=== PATIENT | female | born 1990 | race Caucasian/White ===

== ENCOUNTER 2016-07-19 01:15 | Emergency (ER) | payer SELFPAY ==
[~2016-07-19] VITALS: Ht 165.1 cm; Wt 57.0 kg
[2016-07-19 01:46] VITALS: Ht 165.1 cm; Wt 57.0 kg
--- NOTE | 2016-07-19 04:34 | ERD ---
ER Documentation Chief Complaint Date/Time DATE: 07/19/16 TIME: 04:30 Chief Complaint burning pain upon urination, denies abd pain/pelvic pain HPI 26-year-old female presents to ED with chief complaint of dysuria and hematuria times one day. Associated symptoms include mild suprapubic pain. Patient states that she's noticed small clumps of blood when urinating since yesterday. She denies fever, vaginal discharge, flank pain, nausea, vomiting, and adnexal pain. LNMP was 06/19/16. She denies recent urinary tract infection or recent use of antibiotics. She has not taken any medications for relief of her symptoms. ROS All systems reviewed and are negative except as per history of present illness. Medications Home Meds Active Scripts Phenazopyridine Hcl* (Pyridium*) 100 Mg Tab, 100 MG PO TID Y for URINARY PAIN, # 8 TAB Prov:Renate Baires PA-C 07/19/16 Nitrofurantoin Monohyd Macrocr* (Macrobid*) 100 Mg Capsr, 100 MG PO BID for 14 Days, CAP Prov:Renate Baires PA-C 07/19/16 Allergies Allergies: Coded Allergies: naproxen (Verified Allergy, Unknown, hives, 07/19/16) PMhx/Soc Medical and Surgical Hx: pt denies Medical Hx, pt denies Surgical Hx History of Surgery: No Anesthesia Reaction: No Hx Neurological Disorder: No Hx Respiratory Disorders: No Hx Cardiac Disorders: No Hx Psychiatric Problems: No Hx Miscellaneous Medical Probl: No Hx Alcohol Use: Yes (OCC) Hx Substance Use: No Hx Tobacco Use: No Smoking Status: Never smoker Physical Exam Vitals Vital Signs Date Time Temp Pulse Resp B/P Pulse Ox O2 Delivery O2 Flow Rate FiO2 07/19/16 01:46 98.5 106 18 112/57 99 Physical Exam GENERAL: Non-toxic. No apparent signs of distress. LUNGS: Clear to auscultation. No accessory muscle use. No wheezing, no crackles. No signs or symptoms of respiratory distress. HEART: Regular rate and rhythm. No murmurs, clicks, rubs or gallops. ABDOMEN: Soft, mild tenderness to palpation of suprapubic area nondistended. Bowel sounds positive. No rebound or guarding. No gross peritoneal signs. No Kidd or McBurney point tenderness. No gross masses. BACK: No midline tenderness, no costovertebral tenderness. EXTREMITIES: No peripheral cyanosis or edema. No focal pain or notable trauma. Full range of motion. Good capillary refill. NEURO: The patient moves all 4 extremities with 5/5 strength. Cranial nerves are grossly intact. Normal mental status for age. Good muscle tone. SKIN: There is no apparent rash, petechiae, erythema or swelling. Good skin turgor. Result Diagram: 07/19/16 0438 Results 24 hrs Laboratory Tests Test 07/19/16 03:46 07/19/16 04:38 Urine Bacteria MANY Urine Bilirubin NEGATIVE Urine Clarity CLEAR Urine Color LT. YELLOW Urine Glucose NEGATIVE% Urine Hemoglobin 3+ Urine Ketones TRACE Urine Leukocyte Esterase 1+ Urine Microscopic RBC >200/HPF Urine Microscopic WBC >50/HPF Urine Mucus MODERATE Urine Nitrite POSITIVE Urine Specific Upton >=1.030 Urine Squamous Epithelial Cells MODERATE Urine Total Protein 2+ Urine Urobilinogen 0.2 E.U./dL Urine pH 6.0 Basophils # 0.010^3/ul Basophils % 0.3% Beta HCG, Quantitative 425.8mIU/ml Blood Morphology Comment Eosinophils # 0.110^3/ul Eosinophils % 0.7% Hematocrit 40.6% Hemoglobin 13.5g/dl Lymphocytes # 2.010^3/ul Lymphocytes % 13.9% Mean Corpuscular Hemoglobin 28.4pg Mean Corpuscular Hemoglobin Concent 33.2g/dl Mean Corpuscular Volume 85.4fl Mean Platelet Volume 7.7fl Monocytes # 0.710^3/ul Monocytes % 5.0% Neutrophils # 11.610^3/ul Neutrophils % 80.1% Nucleated Red Blood Cells # 0.010^3/ul Nucleated Red Blood Cells % 0.0/100WBC Platelet Count 86734^3/UL Red Blood Count 4.7510^6/ul Red Cell Distribution Width 13.8% White Blood Count 14.510^3/ul Procedures/MDM Patient initially presented with suprapubic pain and dysuria, that she did not describe as burning but rather a sensation of pressure while urinating. She also states she's had hematuria times one day and noticed clumps of blood while using the restroom. Patient stated that her last normal menstrual cycle was on 06/19/2016. The urine test was ordered along with UA. UA: 1+ leukocyte esterase, positive nitrite= findings consistent with acute cystitis POC urine : Positive Patient did not realize that she was , is now changes the workup from UTI to possible miscarriage. I ordered a first trimester ultrasound along with basic lab work. On physical exam patient had no adnexal tenderness, no flank pain, she is afebrile, and in no acute distress. CBC: 14.5 WBC, likely so she took UTI or stress reaction. Beta hC.8, consistent with early . Blood type: US: No intrauterine , ectopic cannot be excluded. I explained to the patient that she is likely to have miscarried, however due to her LNMP being in early June, this was likely a very early . I instructed the patient to return in 48 hours for serial beta hCG and possible repeat ultrasound. Will be treating patient with Macrobid for UTI. At this time I low suspicion for ovarian torsion, pyelonephritis, STI, PID, sepsis, and ruptured ectopic. Patient is stable for discharge and outpatient management. Advised to follow-up in 2 days for repeat beta hCG. Departure Diagnosis: Primary Impression: Complete Additional Impression: UTI (urinary tract infection) Urinary tract infection type: acute cystitis Hematuria presence: with hematuria Qualified Code: N30.01 - Acute cystitis with hematuria Condition: Stable Referrals: [facility] Renate Baires PA-C Jul 19, 2016 04:34
[2016-07-19 04:45] LABS: ADD UMIC YES; URINE BILIRUBIN (Dip) NEGATIVE (NEGATIVE); URINE BLOOD (Dip) 3+ (NEGATIVE); URINE COLOR LT. YELLOW (YELLOW); URINE GLUCOSE (Dip) NEGATIVE (NEGATIVE); URINE KETONES (Dip) TRACE (NEGATIVE); URINE LEUKOCYTE ESTERASE (Dip) 1+ (NEGATIVE); URINE NITRITE (Dip) POSITIVE (NEGATIVE); URINE TOTAL PROTEIN (Dip) 2+ (NEGATIVE); URINE UROBILINOGEN (Dip) 0.2 E.U./dL (0.1-1.0)
[2016-07-19 04:54] LABS: BASOPHILS % 0.3 % (0.0-2.0); EOSINOPHILS # 0.1 10^3/ul (0.0-0.5); EOSINOPHILS % 0.7 % (0.0-7.0); HEMATOCRIT 40.6 % (37.0-47.0); HEMOGLOBIN 13.5 g/dl (12.0-16.0); LYMPHOCYTES % 13.9 % (15.0-51.0); MEAN CORPUSCULAR HEMOGLOBIN 28.4 pg (29.0-33.0); MEAN CORPUSCULAR HGB CONC 33.2 g/dl (32.0-37.0); MEAN CORPUSCULAR VOLUME 85.4 fl (82.0-101.0); MEAN PLATELET VOLUME 7.7 fl (7.4-10.4); MONOCYTE # 0.7 10^3/ul (0.3-0.9); NEUTROPHIL # 11.6 10^3/ul (1.6-7.5); NEUTROPHILS % 80.1 % (39.0-77.0); PLATELET COUNT 378 10^3/UL (140-440); RED BLOOD COUNT 4.75 10^6/ul (4.20-5.40); RED CELL DISTRIBUTION WIDTH 13.8 % (11.5-14.5); UNCORRECTED WBC 14.5 10^3/ul (4.8-10.8); WHITE BLOOD COUNT 14.5 10^3/ul (4.8-10.8)
[2016-07-19 05:00] LABS: CONDITION 1
[2016-07-19 05:05] LABS: URINE RBCS >200 /HPF (0)
[2016-07-19 05:06] LABS: BACTERIA,URINE MANY; MUCUS,URINE MODERATE; SQUAMOUS EPITHELIAL CELL,UR MODERATE
--- NOTE | 2016-07-19 05:48 | RADRPT ---
PROCEDURE: US OB. CLINICAL INDICATION: Vaginal bleeding in . TECHNIQUE: Transabdominal and endovaginal imaging of the uterus is available for review COMPARISON: None available FINDINGS: No intrauterine is identified. The endometrial stripe is heterogeneous and measures 22 mm in thickness. The uterus is otherwise unremarkable. The right ovary measures 2.9 x 2.2 x 1.3 cm a nd the left ovary is enlarged and heterogeneous, measuring 3.4 x 2.2 x 3.6 cm. No adnexal mass is i dentified. Small free fluid is noted within the pelvis. IMPRESSION: 1. No intrauterine identified. There are no adnexal masses. Correlation with serial bet a HCGs and repeat pelvic ultrasound as clinically indicated, is recommended, as ectopic is not excluded on this examination. 2. Enlarged, heterogeneous appearance of the left ovary. RPTAT: HH .Shweta Malik MD, Date Time Electronically viewed and signed by .Shweta Malik MD, on 07/19/2016 05:48 .G/
[2016-07-19] MEDS ORDERED: PHEN-537 PO (06:23)
[2016-07-19] MEDS ORDERED: NITR-58 PO (06:23)
== END 2016-07-19 07:18 | disposition home or self-care (01) ==
LOC: FTE 01:15
DX: O03.9 Complete or unspecified spontaneous abortion without complication (principal); O23.10 Infections of bladder in pregnancy, unspecified trimester; R10.2 Pelvic and perineal pain
CPT/HCPCS: 76801; 76817; 81001; 81003; 84702; 85025; 86900; 86901; J2790; 36415

== ENCOUNTER 2016-07-21 12:15 | Emergency (ER) | payer SELFPAY ==
[~2016-07-21] VITALS: Ht 160 cm; Wt 60.0 kg
[~2016-07-21 12:15] MED LIST: NITR-58 PO; PHEN-537 PO
[2016-07-21 12:44] VITALS: Ht 160 cm; Wt 60.0 kg
[2016-07-21] MEDS ORDERED: ACETAMINOPHEN 325 MG TAB PO STA (16:18)
--- NOTE | 2016-07-21 16:49 | ERD ---
ER Documentation Chief Complaint Date/Time DATE: 07/21/16 TIME: 16:41 Chief Complaint recheck for beta hcg vaginal bleeding HPI This is a 26-year-old female presenting to emergency department for evaluation of . Patient was here 2 days ago for dysuria and hematuria. At that time she was told that she is and therefore a workup was done. An obstetric ultrasound was done 2 days ago reviewed by radiologist as no intrauterine . Patient continues to have light pink spotting. No clots or tissue passed. Patient continues to have suprapubic tenderness and dysuria. Patient was started on Macrobid 2 days ago and is taking this as prescribed. A0. No history of miscarriage or . No history of ectopic . ROS All systems reviewed and are negative except as per history of present illness. Medications Home Meds Active Scripts Phenazopyridine Hcl* (Pyridium*) 100 Mg Tab, 100 MG PO TID Y for URINARY PAIN, # 8 TAB Prov:Renate Baires PA-C 07/19/16 Nitrofurantoin Monohyd Macrocr* (Macrobid*) 100 Mg Capsr, 100 MG PO BID for 14 Days, CAP Prov:Renate Baires PA-C 07/19/16 Allergies Allergies: Coded Allergies: naproxen (Verified Allergy, Unknown, hives, 07/19/16) PMhx/Soc Medical and Surgical Hx: pt denies Medical Hx, pt denies Surgical Hx History of Surgery: No Anesthesia Reaction: No Hx Neurological Disorder: No Hx Respiratory Disorders: No Hx Cardiac Disorders: No Hx Psychiatric Problems: No Hx Miscellaneous Medical Probl: No Hx Alcohol Use: No Hx Substance Use: No Hx Tobacco Use: No Physical Exam Vitals Vital Signs Date Time Temp Pulse Resp B/P Pulse Ox O2 Delivery O2 Flow Rate FiO2 07/21/16 20:03 98.4 89 18 116/72 97 Room Air 07/21/16 12:44 97.7 77 18 108/68 100 Physical Exam Const: NAD, alert Head: Atraumatic Eyes: Normal Conjunctiva ENT: Normal External Ears, Nose and Mouth. Neck: Full range of motion..~ No meningismus. Resp: Clear to auscultation bilaterally Cardio: Regular rate and rhythm, no murmurs Abd: Soft, non tender, non distended. Normal bowel sounds Skin: No petechiae or rashes Back: No midline or flank tenderness Ext: No cyanosis, or edema Neur: Awake and alert Psych: Normal Mood and Affect Result Diagram: 07/21/16 1800 Results 24 hrs Laboratory Tests Test 07/21/16 18:00 07/21/16 19:25 Basophils # 0.110^3/ul Basophils % 0.6% Beta HCG, Quantitative 1359.1mIU/ml Blood Morphology Comment Eosinophils # 0.210^3/ul Eosinophils % 1.8% Hematocrit 38.8% Hemoglobin 12.9g/dl Lymphocytes # 2.710^3/ul Lymphocytes % 25.6% Mean Corpuscular Hemoglobin 28.5pg Mean Corpuscular Hemoglobin Concent 33.3g/dl Mean Corpuscular Volume 85.4fl Mean Platelet Volume 7.7fl Monocytes # 0.810^3/ul Monocytes % 7.3% Neutrophils # 6.810^3/ul Neutrophils % 64.7% Nucleated Red Blood Cells # 0.010^3/ul Nucleated Red Blood Cells % 0.0/100WBC Platelet Count 07820^3/UL Red Blood Count 4.5410^6/ul Red Cell Distribution Width 14.0% White Blood Count 10.510^3/ul Bedside Urine Blood 3+ Bedside Urine Glucose (UA) Negative Bedside Urine Ketones (LAB) Trace Bedside Urine Leukocyte Esterase (L Trace Bedside Urine Nitrite (LAB) Positive Bedside Urine Protein (LAB) 2+ Bedside Urine pH (LAB) 6.0 Current Medications Medications (Trade) Dose Ordered Sig/Sridevi Route PRN Reason Start Time Stop Time Status Last Admin Dose Admin Acetaminophen (Tylenol Tab) 650 mg ONCE STAT PO 07/21/16 16:18 07/21/16 16:20 DC 07/21/16 16:26 Procedures/MDM ED COURSE: The patient was stable throughout ED course. I kept the patient and/or family informed of laboratory and diagnostic imaging results throughout the ED course. Tylenol given Laboratory CBC no significant anemia or infection. Beta-hCG 1359.1 urine dip trace leukocyte esterase, positive nitrite, 3+ blood, trace ketones, 2 +blood Imaging OB ultrasound Patient: HOLGER MORRIS : 1990 Age: 26 Sex: F MR #: [id number] DOS: 07/21/16 1618 Ordering MD: JOSE MIGUEL HO NP Location: [facility] Room/Bed: PROCEDURE: US OB. CLINICAL INDICATION: Vaginal bleeding. TECHNIQUE: Transabdominal and transvaginal imaging of the uterus was performed. COMPARISON: None. FINDINGS: There is no evidence of an intrauterine . The endometrium measures up to 9 mm in thickness. There is a small corpus luteal cyst of the left ovary. No worrisome adnexal cyst or mass is demonstrated. No free fluid or fluid collection IMPRESSION: No intrauterine or worrisome adnexal mass. Recommend continued correlation with serial serum maternal beta HCG levels and close interval sonographic follow-up, as an ectopic is not excluded. MDM: 26-year-old female presents emergency department for evaluation of . Patient continues to have light pink spotting and pelvic cramping. Patient states she is having nausea however no vomiting. OB ultrasound reviewed by radiologist shows no intrauterine or worrisome adnexal mass. Recommend continued correlation with serial serum maternal beta HCG levels and close interval sonographic follow-up, as an ectopic is not excluded. Urine positive for infection however patient is currently on Macrobid for this and started 1 day ago. Beta Hcg is 1359.1 and is up-trending from 2 days ago in which the level was 425.8. Based on protocol, this level is still in a level that is unable to fully rule out ectopic . Patient's pain is controlled while in the ED and bleeding remains minimal. Remains hemodynamically stable. Differential diagnosis includes but not limited to early , miscarriage , ectopic , pelvic inflammatory disease and hemorrhagic ovarian cyst. Low suspciion for ovarian torsion, pyelonephritis and sepsis. Patient is appropriate for outpatient management and instructed to return to ED in 2 days for repeat labs and ultrasound. Return to ED sooner for any increased bleeding, increased pain, high fever or any new or worsening symptoms. Patient verbalizes understanding. All questions answered at discharge. Copy of results provided for patient and patient given resources for OBGYN physicians nearby. Departure Diagnosis: Primary Impression: Vaginal bleeding in patient at less than 20 weeks gestation Condition: Stable JOSE MIGUEL HO NP Jul 21, 2016 16:49
--- NOTE | 2016-07-21 17:02 | RADRPT ---
PROCEDURE: US OB. CLINICAL INDICATION: Vaginal bleeding. TECHNIQUE: Transabdominal and transvaginal imaging of the uterus was performed. COMPARISON: None. FINDINGS: There is no evidence of an intrauterine . The endometrium measures up to 9 mm in thickness . There is a small corpus luteal cyst of the left ovary. No worrisome adnexal cyst or mass is demonst rated. No free fluid or fluid collection IMPRESSION: No intrauterine or worrisome adnexal mass. Recommend continued correlation with serial serum maternal beta HCG levels and close interval sonogr aphic follow-up, as an ectopic is not excluded. RPTAT: EE .Moises Duvall MD, MD Date Time Electronically viewed and signed by .Moises Duvall MD, MD on 07/21/2016 17:05 .C/
[2016-07-21 18:40] LABS: BASOPHIL # 0.1 10^3/ul (0.0-0.1); BASOPHILS % 0.6 % (0.0-2.0); EOSINOPHILS # 0.2 10^3/ul (0.0-0.5); EOSINOPHILS % 1.8 % (0.0-7.0); HEMATOCRIT 38.8 % (37.0-47.0); HEMOGLOBIN 12.9 g/dl (12.0-16.0); LYMPHOCYTES # 2.7 10^3/ul (0.8-2.9); LYMPHOCYTES % 25.6 % (15.0-51.0); MEAN CORPUSCULAR HEMOGLOBIN 28.5 pg (29.0-33.0); MEAN CORPUSCULAR HGB CONC 33.3 g/dl (32.0-37.0); MEAN CORPUSCULAR VOLUME 85.4 fl (82.0-101.0); MEAN PLATELET VOLUME 7.7 fl (7.4-10.4); MONOCYTE # 0.8 10^3/ul (0.3-0.9); MONOCYTES % 7.3 % (0.0-11.0); NEUTROPHIL # 6.8 10^3/ul (1.6-7.5); NEUTROPHILS % 64.7 % (39.0-77.0); PLATELET COUNT 406 10^3/UL (140-440); RED BLOOD COUNT 4.54 10^6/ul (4.20-5.40); UNCORRECTED WBC 10.5 10^3/ul (4.8-10.8); WHITE BLOOD COUNT 10.5 10^3/ul (4.8-10.8)
[2016-07-21 18:41] LABS: CONDITION 1
[2016-07-21 19:24] LABS: URINE BLOOD (Dip) POC 3+ (NEGATIVE)
[2016-07-21 20:03] VITALS: BP 116/72; PULSE 89; RESP 18; TEMP 98.4
== END 2016-07-21 20:20 | disposition home or self-care (01) ==
LOC: FTE 12:15
DX: O20.9 Hemorrhage in early pregnancy, unspecified (principal); R10.2 Pelvic and perineal pain; Z3A.00 Weeks of gestation of pregnancy not specified
CPT/HCPCS: 36415; 76801; 76817; 81003; 84702; 85025

== ENCOUNTER 2016-07-23 11:51 | Emergency (ER) | payer SELFPAY ==
[~2016-07-23] VITALS: Wt 54.5 kg
--- NOTE | 2016-07-23 13:31 | ERD ---
ER Documentation Chief Complaint Date/Time DATE: 07/23/16 TIME: 13:27 Chief Complaint RIGHT SIDE LOWER ABD PAIN,NAUSEA NO VOMITING. NO DYSURIA. NO VAG BLEED HPI 26-year-old female who was seen here before for and vaginal bleeding is back today for follow-up check. Patient stated that her vaginal bleeding has stopped yesterday. However, she is now having "random" shooting pain in the right inguinal area. Pain usually associated with movement. Her dysuria also resolved, she stopped taking her antibiotics yesterday for UTI. Patient's LMP was 06/19/2016, she is . Denies fever or chills. Denies nausea, vomiting or diarrhea. ROS All systems reviewed and are negative except as per history of present illness. Medications Home Meds Active Scripts Acetaminophen* (Tylophen*) 500 Mg Capsule, 1 CAP PO Q6H Y for PAIN AND OR ELEVATED TEMP, #20 CAP Prov:SERGO DOMINGUEZ. LOSS PREVENTION MANAGER 07/23/16 Phenazopyridine Hcl* (Pyridium*) 100 Mg Tab, 100 MG PO TID Y for URINARY PAIN, # 8 TAB Prov:Renate Baires PA-C 07/19/16 Nitrofurantoin Monohyd Macrocr* (Macrobid*) 100 Mg Capsr, 100 MG PO BID for 14 Days, CAP Prov:Renate Baires PA-C 07/19/16 Allergies Allergies: Coded Allergies: naproxen (Verified Allergy, Unknown, hives, 07/19/16) PMhx/Soc Medical and Surgical Hx: pt denies Medical Hx History of Surgery: No Anesthesia Reaction: No Hx Neurological Disorder: No Hx Respiratory Disorders: No Hx Cardiac Disorders: No Hx Psychiatric Problems: No Hx Miscellaneous Medical Probl: No Hx Alcohol Use: No Hx Substance Use: No Hx Tobacco Use: No Physical Exam Vitals Vital Signs Date Time Temp Pulse Resp B/P Pulse Ox O2 Delivery O2 Flow Rate FiO2 07/23/16 11:57 99.2 85 20 115/70 100 Physical Exam General impression: Well-developed, well-nourished. Alert, oriented, in no acute distress Head: Normocephalic, atraumatic. Eyes: PERRL, EOM normal. Conjunctiva not injected. ENT: External canals clear. TM's pearly hall. Nasal mucosa, oral mucosa and oropharynx are normal. Neck: Supple, nontender. No lymphanopathy. No nuchal rigidity. Respiration: Normal respiratory effort. Lungs clear to auscultate bilaterally. No wheezes, rales or rhonchi. Cardiovascular: Regular rate and rhythm. No murmurs or extra heart sounds. Abdomen: Abdomen normal to inspection. Nontender. No masses or organomegaly. Bowel sounds normal. Mild right inguinal tenderness noted. Back: Normal to inspection. No midline spine tenderness. No CVA tenderness. Extremities: Extremities normal to inspection, nontender. ROM normal. Neuro: Mental status normal, speech normal. CUSTOM HARVESTER grossly intact. Skin: Normal turgor. No rash or lesions. Psych: Normal mood and affect. Results 24 hrs Laboratory Tests Test 07/23/16 13:30 Beta HCG, Quantitative 2897.9mIU/ml Procedures/MDM Well-appearing 26-year-old female who is is here today for follow-up recheck. Her beta hCG quant today is 2897.9, nearly doubled from 1359.92 days ago. Repeat ultrasound showed a small cystic structure within the endometrium without pole or yolk sac. This structure was not present in the ultrasound 2 days ago. I think this likely represent normal progression of . Low suspicion for ectopic at this time. Patient is advised to follow-up with her OB for repeat ultrasound within one week. Patient also complaining occasional pelvic pain. The pain is located in the right inguinal region, likely represent hernia. Patient appears well, stable for discharge and outpatient management. Medical decision making shared with patient and family. Education provided to patient and family. Patient and family expressed understanding of the plan. Medications on discharge: tylenol. Follow-up: Primary care provider in 2-3 days or return to ED if worse. The case was reviewed and discussed with Dr. Fontenot, who agrees with the plan of care including labs, treatment, and advanced imaging as appropriate. SERGO DOMINGUEZ NP Jul 23, 2016 13:31
--- NOTE | 2016-07-23 13:57 | RADRPT ---
PROCEDURE: US Pelvis/OB. CLINICAL INDICATION: Pelvic pain TECHNIQUE: Multiple sonographic images of the pelvis were obtained utilizing a transabdominal and endovaginal technique. The images were reviewed on a PACS workstation. COMPARISON: 07/21/2016 FINDINGS: There is a small cystic structure within the endometrium measuring 0.5 cm which would correspond to a calculated gestational age of 5 weeks and 0 days. No pole or yolk sac is yet visualized. The right ovary measures 2.8 x 1.8 x 1.7 cm. The left ovary measures 4.0 x 2.5 x 2.6 cm. There is a hemorrhagic cyst in the left ovary, measuring 2.5 cm. There is normal Doppler flow in the ovaries. No significant free fluid is present within the pelvis. RPTAT: AA IMPRESSION: Possible early intrauterine at 5 weeks and 0 days. Close followup ultrasound and hCG is recommended. .Scooby Hutson MD, MD Date Time Electronically viewed and signed by .Scooby Hutson MD, on 07/23/2016 13:57 .S/
[2016-07-23] MEDS ORDERED: ACET500C5 PO (14:46)
== END 2016-07-23 15:00 | disposition home or self-care (01) ==
LOC: FTE 11:51
DX: O26.891 Other specified pregnancy related conditions, first trimester (principal); R10.31 Right lower quadrant pain; R10.2 Pelvic and perineal pain; Z3A.01 Less than 8 weeks gestation of pregnancy
CPT/HCPCS: 76801; 76817; 84702